=== PATIENT | female | born 1990 | race Caucasian/White ===

== ENCOUNTER 2018-09-19 16:57 | Inpatient (IN) | payer BC, MEDICAID ==
[~2018-09-19] VITALS: Ht 162.6 cm; Wt 76.0 kg
--- NOTE | 2018-09-19 17:30 | NUR ---
joo is at the bedside for consult
[2018-09-19] MEDS ORDERED: HYDROmorphone 1 MG/ML, 1ML AMP ONE ×2 (17:49→20:03)
[2018-09-19] MEDS: HYDROmorphone 1 MG/ML, 1ML AMP IVPush PRN ×2 (17:52→20:11)
[2018-09-19 17:55] LABS: BASOPHILS # (AUTO) 0.05 x10^3/uL (0-0.1); BASOPHILS % (AUTO) 1 % (0-1); EOSINOPHILS # (AUTO) 0.12 x10^3/uL (0-0.4); EOSINOPHILS % (AUTO) 1 % (1-7); LYMPHOCYTES # (AUTO) 2.88 x10^3/uL (1-3.4); LYMPHOCYTES % (AUTO) 29 % (22-44); MD NO; MEAN CORPUSCULAR HEMOGLOBIN 29.9 pg (27.0-34.8); MEAN CORPUSCULAR HGB CONC 34.1 g/dL (32.4-35.8); MEAN CORPUSCULAR VOLUME 87.4 fL (80-100); MEAN PLATELET VOLUME 7.8 fL (7.4-10.4); MONOCYTES # (AUTO) 0.81 x10^3/uL (0.2-0.8); MONOCYTES % (AUTO) 8 % (2-9); NEUTROPHILS # (AUTO) 6.21 x10^3/uL (1.8-6.8); NEUTROPHILS % (AUTO) 62 % (42-75); PLATELET COUNT 159 x10^3/uL (130-400); RED BLOOD COUNT 4.67 x10^6/uL (3.82-5.3); RED CELL DISTRIBUTION WIDTH 13.8 % (9.6-15.2)
[2018-09-19 18:04] LABS: ALBUMIN 3.8 g/dL (3.4-5.0); ANION GAP 7 mmol/L (5-15); CALCIUM 9.4 mg/dL (8.5-10.1); CHLORIDE 110 mmol/L (98-107); CREATININE 0.61 mg/dL (0.55-1.02)
[2018-09-19 18:08] LABS: TROPONIN I < 0.015 ng/mL (0.000-0.045)
--- NOTE | 2018-09-19 18:54 | NUR ---
KARIE (RN) IS ASSUMING CARE OF THIS PT AT THIS TIME. SBAR REPORT WAS EXCHANGED AT THE BEDSIDE.
[2018-09-19] MEDS ORDERED: ONDANSETRON ODT 4 MG PO PRN (20:00)
[2018-09-19] MEDS ORDERED: POLYETHYLENE GLYCOL 17 GM PACKET PO PRN (20:00)
[2018-09-19] MEDS ORDERED: BISACODYL 10 MG SUPP PR PRN (20:00)
[2018-09-19] MEDS ORDERED: ACETAMINOPHEN 500 MG TABLET PO PRN (20:00)
[2018-09-19 20:30] LABS: INTERNATIONAL NORMALIZED RATIO 1.08 (0.93-1.1); PROTHROMBIN TIME 11.3 Seconds (9.6-11.5)
--- NOTE | 2018-09-19 20:36 | NUR ---
PT MEDICATED ORDERS AND REPORT CALLED PT READY FOR TRANSPORT.
[2018-09-19] MEDS: SODIUM CHLORIDE FLUSH 10ML SYR IVF SCH (21:00)
[2018-09-19 21:23] VITALS: BP 121/80
[2018-09-20] MEDS: GABAPENTIN 100 MG CAPSULE PO SCH ×4 (00:05→20:02)
[2018-09-20 04:38] VITALS: BP 116/82
[2018-09-20 06:03] LABS: BASOPHILS # (AUTO) 0.04 x10^3/uL (0-0.1); BASOPHILS % (AUTO) 1 % (0-1); EOSINOPHILS # (AUTO) 0.11 x10^3/uL (0-0.4); EOSINOPHILS % (AUTO) 2 % (1-7); LYMPHOCYTES # (AUTO) 2.25 x10^3/uL (1-3.4); LYMPHOCYTES % (AUTO) 33 % (22-44); MD NO; MEAN CORPUSCULAR HEMOGLOBIN 29.6 pg (27.0-34.8); MEAN CORPUSCULAR HGB CONC 34.3 g/dL (32.4-35.8); MEAN CORPUSCULAR VOLUME 86.4 fL (80-100); MONOCYTES # (AUTO) 0.68 x10^3/uL (0.2-0.8); MONOCYTES % (AUTO) 10 % (2-9); NEUTROPHILS # (AUTO) 3.85 x10^3/uL (1.8-6.8); NEUTROPHILS % (AUTO) 56 % (42-75); PLATELET COUNT 149 x10^3/uL (130-400); RED BLOOD COUNT 4.44 x10^6/uL (3.82-5.3); RED CELL DISTRIBUTION WIDTH 14.1 % (9.6-15.2)
[2018-09-20 06:08] LABS: ALBUMIN 3.3 g/dL (3.4-5.0); ANION GAP 6 mmol/L (5-15); CALCIUM 8.5 mg/dL (8.5-10.1); CHLORIDE 111 mmol/L (98-107)
[2018-09-20 06:14] LABS: ALANINE AMINOTRANSFERASE 172 U/L (12-78); ALKALINE PHOSPHATASE 103 U/L (45-117); BILIRUBIN,TOTAL 0.8 mg/dL (0.2-1.0); CREATININE 0.62 mg/dL (0.55-1.02); TOTAL PROTEIN 6.4 g/dL (6.4-8.2)
[2018-09-20 07:08] VITALS: BP 100/62
[2018-09-20] MEDS ORDERED: RIVA20TA PO (07:59)
[2018-09-20] MEDS ORDERED: HYDROmorphone 2 MG/ML, 1ML ONE ×2 (08:44→11:36)
[2018-09-20] MEDS ORDERED: HEPARIN 5,000 UNITS/ML, 1ML IV ONE (09:00)
[2018-09-20] MEDS ORDERED: HEPARIN 5,000 UNITS/ML, 1ML IV PRN (09:00)
[2018-09-20] MEDS: SODIUM CHLORIDE FLUSH 10ML SYR IVF SCH ×2 (09:00→20:02)
[2018-09-20] MEDS ORDERED: HEPARIN 25,000 UNITS/500ML PMX 500 ML IV PRN (09:00)
[2018-09-20] MEDS ORDERED: RIVAROXABAN 20 MG TABLET PO SCH (09:00)
[2018-09-20] MEDS: SENNA/DOCUSATE TABLET PO SCH ×2 (09:00→11:33)
[2018-09-20] MEDS ORDERED: HYDROmorphone 1 MG/ML, 1ML AMP IV ONE ×2 (09:00→11:30)
[2018-09-20] MEDS ORDERED: TRAZ150T62 PO (09:22)
[2018-09-20 09:38] LABS: TROPONIN I < 0.015 ng/mL (0.000-0.045)
[2018-09-20] MEDS: ACETAMINOPHEN 325 MG TABLET PO SCH ×3 (13:40→20:02)
[2018-09-20 15:26] LABS: TROPONIN I < 0.015 ng/mL (0.000-0.045)
[2018-09-20 16:00] VITALS: BP 105/59
[2018-09-20 18:24] LABS: HCT (SEDRATE) 39.1 % (34.6-47.8)
[2018-09-20] MEDS: ASPIRIN 81 MG TABLET EC PO SCH (18:26)
[2018-09-20] MEDS: METHOCARBAMOL 500 MG TABLET PO PRN (18:32)
[2018-09-20 18:33] LABS: C-REACTIVE PROTEIN, QUANT 1.1 mg/dL (0.02-0.49)
[2018-09-20 20:00] VITALS: BP 103/67
[2018-09-21] MEDS: ACETAMINOPHEN 325 MG TABLET PO SCH ×3 (00:20→09:05)
[2018-09-21 02:00] VITALS: BP 105/69
[2018-09-21 04:45] LABS: AMPHETAMINE SCREEN, URINE Negative (Negative); BARBITURATE SCREEN, URINE Negative (Negative); BENZODIAZEPINE SCREEN, URINE Negative (Negative); CANNABINOID SCREEN, URINE Positive (Negative); COCAINE SCREEN, URINE Negative (Negative); METHADONE SCREEN, URINE Negative (Negative); OPIATE SCREEN, URINE Positive (Negative)
[2018-09-21 05:02] LABS: BASOPHILS # (AUTO) 0.03 x10^3/uL (0-0.1); BASOPHILS % (AUTO) 0 % (0-1); EOSINOPHILS # (AUTO) 0.13 x10^3/uL (0-0.4); EOSINOPHILS % (AUTO) 2 % (1-7); LYMPHOCYTES # (AUTO) 2.15 x10^3/uL (1-3.4); LYMPHOCYTES % (AUTO) 34 % (22-44); MD NO; MEAN CORPUSCULAR HEMOGLOBIN 29.6 pg (27.0-34.8); MEAN CORPUSCULAR HGB CONC 33.8 g/dL (32.4-35.8); MEAN CORPUSCULAR VOLUME 87.7 fL (80-100); MONOCYTES # (AUTO) 0.65 x10^3/uL (0.2-0.8); MONOCYTES % (AUTO) 11 % (2-9); NEUTROPHILS % (AUTO) 53 % (42-75); PLATELET COUNT 154 x10^3/uL (130-400); RED BLOOD COUNT 4.33 x10^6/uL (3.82-5.3); RED CELL DISTRIBUTION WIDTH 13.9 % (9.6-15.2)
[2018-09-21 05:12] LABS: ALANINE AMINOTRANSFERASE 165 U/L (12-78); ALBUMIN 3.2 g/dL (3.4-5.0); ANION GAP 5 mmol/L (5-15); CALCIUM 8.6 mg/dL (8.5-10.1); CHLORIDE 112 mmol/L (98-107)
[2018-09-21 05:39] LABS: ALKALINE PHOSPHATASE 110 U/L (45-117); BILIRUBIN,TOTAL 0.4 mg/dL (0.2-1.0); TOTAL PROTEIN 6.5 g/dL (6.4-8.2)
[2018-09-21] MEDS: ASPIRIN 81 MG TABLET EC PO SCH (05:45)
[2018-09-21] MEDS: METHOCARBAMOL 500 MG TABLET PO PRN (05:46)
[2018-09-21 07:20] VITALS: BP 102/66
[2018-09-21] MEDS ORDERED: RIVAROXABAN 20 MG TABLET PO SCH (08:00)
[2018-09-21] MEDS: SENNA/DOCUSATE TABLET PO SCH (09:06)
[2018-09-21] MEDS: GABAPENTIN 100 MG CAPSULE PO SCH (09:06)
[2018-09-21] MEDS: SODIUM CHLORIDE FLUSH 10ML SYR IVF SCH (09:07)
[2018-09-21] MEDS ORDERED: ERGOCALCIFEROL 50,000 UNIT CAPSULE PO SCH (10:30)
[2018-09-21] MEDS ORDERED: ERGO500017 PO (11:01)
== END 2018-09-21 12:23 | disposition home or self-care (01) | DRG 556 ==
LOC: ED 19:33 → EDIP 19:37 → 4NOR 21:19 → 4WST 09-20 09:41 → UNDODISIN 09-21 12:01 → DCLOUNGE 09-21 12:05
PROVIDERS: ADMIT Internal Medicine; ATTEND Internal Medicine
DX: M79.661 Pain in right lower leg (principal); D68.59 Other primary thrombophilia; R07.9 Chest pain, unspecified; F43.10 Post-traumatic stress disorder, unspecified; Z90.49 Acquired absence of other specified parts of digestive tract; Z90.89 Acquired absence of other organs; Z95.828 Presence of other vascular implants and grafts; Z90.710 Acquired absence of both cervix and uterus; Z86.718 Personal history of other venous thrombosis and embolism; Z86.711 Personal history of pulmonary embolism; Z79.01 Long term (current) use of anticoagulants; Z76.5 Malingerer [conscious simulation]; Z88.5 Allergy status to narcotic agent; Z88.8 Allergy status to other drugs, medicaments and biological substances; Z91.041 Radiographic dye allergy status
CPT/HCPCS: 36415; 71045; 76700; 78582; 80048; 80053; 80074; 80307; 82040; 82306; 82607; 83735; 84484; 85025; 85520; 85610; 85651; 85730; 86140; 93005; 93306; 93922; G0378; J1170; J1644; A9540; A9558; C9898